=== PATIENT | female | born 1945 | race African-American/Black ===

== ENCOUNTER 2021-12-19 13:33 | Emergency (ER) | payer BC, OTHER ==
[~2021-12-19] VITALS: Ht 165.1 cm; Wt 77.0 kg
[~2021-12-19 13:33] MED LIST: ALLO100T PO; CHOL400T15 PO; CLON0.2T PO; COLC0.6T66 PO; EDARBI; FLUT16SP15 NS; GUAI120015 PO; LEVA15HF4 INH; MAGN500C4 PO; MULTIVITAMIN; PRED5DRO7 OP; VITAMINC; [UNRECOGNIZED DRUG - OTHER]
[2021-12-19] MEDS ORDERED: TRAM50TA3 MT (15:49)
[2021-12-19 16:05] LABS: CLARITY URINE CLEAR (CLEAR); COLOR URINE YELLOW (YELLOW); KETONES URINE NEGATIVE (NEGATIVE); LEUKOCYTE ESTERASE URINE NEGATIVE (NEGATIVE); NITRITE URINE NEGATIVE (NEGATIVE); OCCULT BLOOD URINE TRACE (NEGATIVE); PH URINE 7.5 (4.5-8.0); PROTEIN URINE NEGATIVE (NEGATIVE); SPECIFIC GRAVITY URINE 1.009 (1.005-1.030); UROBILINOGEN URINE 0.2 E.U./dL (0.2-1.0)
[2021-12-19 16:09] VITALS: BP 120/74
== END 2021-12-19 16:33 | disposition home or self-care (01) ==
LOC: ER 13:33
DX: M85.862 Other specified disorders of bone density and structure, left lower leg (principal); M85.861 Other specified disorders of bone density and structure, right lower leg; G62.9 Polyneuropathy, unspecified; M19.90 Unspecified osteoarthritis, unspecified site; J45.909 Unspecified asthma, uncomplicated; I10 Essential (primary) hypertension; E03.9 Hypothyroidism, unspecified; Z88.0 Allergy status to penicillin; Z88.1 Allergy status to other antibiotic agents; Z88.6 Allergy status to analgesic agent; Z90.49 Acquired absence of other specified parts of digestive tract; Z98.51 Tubal ligation status; Z90.710 Acquired absence of both cervix and uterus; Z91.014 Allergy to mammalian meats; Z91.018 Allergy to other foods; Z98.890 Other specified postprocedural states
CPT/HCPCS: 81003; 93970; 99284